=== PATIENT | female | born 1990 | race Asian ===

== ENCOUNTER → 2018-04-11 08:04 | Outpatient (CLI) | payer OTHER, MEDICAID, SELFPAY ==
[2018-04-11 11:49] LABS: Hematocrit 27.1 % (36-46); Hemoglobin 9.1 g/dL (12.0-16.0)
[2018-04-11 12:20] LABS: GTT (PREG) 1 Hour PP 50gm Dose 164 mg/dL (76-139)
== END ==
PROVIDERS: Family Provider Specialist; PCP Specialist; Visit Provider Specialist
DX: Z34.82 Encounter for supervision of other normal pregnancy, second trimester (principal)
CPT/HCPCS: 36415; 82950; 85014; 85018

== ENCOUNTER → 2018-04-18 07:28 | Outpatient (CLI) | payer OTHER, MEDICAID, SELFPAY ==
[2018-04-18 10:56] LABS: Glucose Tol Interp,Gestational INTERPRETATION
[2018-04-18 11:27] LABS: Glucose 2 Hour Gest 135 mg/dL (76-155)
[2018-04-18 11:41] LABS: Glucose Fasting Gestational 81 mg/dL (76-95)
[2018-04-18 11:43] LABS: Glucose 1 Hour Gest 156 mg/dL (76-180)
[2018-04-18 12:55] LABS: Glucose 3 Hour Gest 126 mg/dL (76-140)
== END ==
PROVIDERS: PCP Specialist; Visit Provider Specialist
DX: O99.810 Abnormal glucose complicating pregnancy (principal); Z34.92 Encounter for supervision of normal pregnancy, unspecified, second trimester
CPT/HCPCS: 36415; 82951; 82952

== ENCOUNTER 2018-06-08 16:38 | Outpatient (CLI) | payer OTHER, MEDICAID, SELFPAY ==
--- NOTE | 2018-06-08 17:00 | P.TNLD_ITS ---
Visit Information Visit Information Date of evaluation: 06/08/18 Primary OB Provider: Graciela Turner Reason for Evaluation: Yes non-stress test Comments/Additional reasons for admission: prior demise 3 day old infant in the [facility] Evaluation Evaluation Baseline heart rate: 130 Variability: Moderate (11-25) monitor accelerations: Present monitor decelerations: Absent Cervical effacement (%): 100 station: -1 Diagnosis, Plan/Disposition Final Diagnosis (1) 36 weeks gestation of : Current Visit: Yes Status: Acute (2) Hx of in prior , currently : Current Visit: Yes Status: Acute Plan/Disposition Plan: Reactive NST. Routine precautions. Follow up in 1 week
== END 2018-06-08 17:20 | disposition home or self-care (01) ==
LOC: OB 06-11 14:41
PROVIDERS: Family Provider Specialist; PCP Specialist; Visit Provider Specialist
CPT/HCPCS: 59025; G0378; G0379

== ENCOUNTER → 2018-06-08 16:41 | Outpatient (CLI) | payer OTHER, MEDICAID, SELFPAY ==
[2018-06-09 15:13] LABS: Strep Grp B PCR POS for Grp B Strep
== END ==
PROVIDERS: Family Provider Specialist; PCP Specialist; Visit Provider Specialist
DX: Z34.83 Encounter for supervision of other normal pregnancy, third trimester (principal); Z3A.36 36 weeks gestation of pregnancy
CPT/HCPCS: 59025; 87653

== ENCOUNTER 2018-06-13 09:05 | Outpatient (CLI) | payer OTHER, MEDICAID, SELFPAY ==
--- NOTE | 2018-06-13 09:49 | PM.OBTRLD ---
Visit Information Visit Information Date of evaluation: 06/13/18 Primary OB Provider: Graciela Turner Reason for Evaluation: Yes non-stress test Evaluation Evaluation Baseline heart rate: 135 Variability: Moderate (11-25) monitor accelerations: Present monitor decelerations: Absent Contraction Frequency (minutes): 0 Cervical dilation (cm): 4 Cervical effacement (%): 80 station: -1 Diagnosis, Plan/Disposition Final Diagnosis (1) Hx of in prior , currently : Current Visit: No Status: Acute (2) 37 weeks gestation of : Current Visit: Yes Status: Acute Plan/Disposition Plan: Reactive nonstress test follow-up in 1 week
== END 2018-06-13 10:00 | disposition home or self-care (01) ==
LOC: LABOR 09:36 → OB 14:14
PROVIDERS: Family Provider Specialist; PCP Specialist; Visit Provider Specialist
DX: Z34.03 Encounter for supervision of normal first pregnancy, third trimester (principal); Z3A.37 37 weeks gestation of pregnancy
CPT/HCPCS: 59025; G0378; G0379

== ENCOUNTER 2018-06-20 12:12 | Outpatient (CLI) | payer OTHER, MEDICAID, SELFPAY ==
--- NOTE | 2018-06-20 12:37 | PM.OBTRLD ---
Visit Information Visit Information Date of evaluation: 06/20/18 Reason for Evaluation: Yes non-stress test Comments/Additional reasons for admission: Prior demise of 3-day-old Evaluation Evaluation Baseline heart rate: 140 Variability: Moderate (11-25) monitor accelerations: Present monitor decelerations: Absent Diagnosis, Plan/Disposition Final Diagnosis (1) Hx of in prior , currently : Current Visit: No Status: Acute (2) 38 weeks gestation of : Current Visit: Yes Status: Acute Plan/Disposition Plan: Reactive nonstress test follow-up at routine OB appointment. Routine precautions for movement and labor were discussed.
== END 2018-06-20 12:41 | disposition home or self-care (01) ==
LOC: OB 06-22 16:42
PROVIDERS: PCP Specialist; Visit Provider Specialist
DX: O09.893 Supervision of other high risk pregnancies, third trimester (principal); Z3A.38 38 weeks gestation of pregnancy
CPT/HCPCS: 59025; G0378; G0379

== ENCOUNTER 2018-06-26 16:41 | Inpatient (IN) | payer OTHER, MEDICAID, SELFPAY ==
[2018-06-26] MEDS: LACTATED RINGERS 1,000 ML 100 ML IV (17:10)
[2018-06-26 18:06] LABS: Add Manual Diff / Slide Review NO; Basophils Percent Auto 0.7 % (0-2); Eosinophils Percent Auto 0.9 % (2-4); Hematocrit 36.1 % (36-46); Hemoglobin 11.8 g/dL (12.0-16.0); Mean Corpuscular HGB Conc 32.7 % (30-36); Mean Corpuscular Hemoglobin 28.8 PG (26-34); Mean Corpuscular Volume 87.8 fL (80-100); Monocytes Percent Auto 7.4 % (3-14); Neutrophils Absolute Auto 8200 /uL (3000-5900); Platelet Count 282 X10^3/uL (150-400); Red Blood Cell Count 4.11 X10^6/uL (4.0-5.2); White Blood Cell Count 11.2 X10^3/uL (4.5-11.0)
[2018-06-26] MEDS: PENICILLIN G POTASSIUM 5,000,000 UNIT in DEXTROSE 5% IN WATER 250 ML IV (18:18)
[2018-06-26 19:45] VITALS: BP 113/66
--- NOTE | 2018-06-26 20:14 | P.HPOB_ITS ---
OB HPI Date/Time Date of admission: 06/26/18 Date Patient Seen: 06/26/18 Time Patient Seen: 20:01 History of Present Illness Chief complaint: EVAL OF LABOR : 2 Para: 1 Estimated Date of Delivery: 07/02/18 Estimated Gestational Age (weeks): 39 Narrative: Elena New is a 28 year old female with spontaneous rupture membranes not in active labor. History of Present care: good care Dating criteria: LMP confirmed by 2nd trimester US Ultrasounds: normal mid trimester US Obstetrical complications: none Medical complications: none Preadmission Labs Blood type: O (+) positive -: Antibody screen: negative, GBS status: positive, HBsAG: negative, HIV: negative, HSV 1: positive, HSV 2: negative and RPR/VDLR: negative HCT: 27 HCAB: negative Quad screen: Normal 3 hr GTT: 1 hr (156), 2 hr (135) and 3 hr (126) Prior (ies) History: 05/30/2008 7 months gestation vaginal delivery male infant on day 3 of age Evaluation Evaluation Baseline heart rate: 140 Variability: Moderate (11-25) monitor accelerations: Present monitor decelerations: Absent Contraction Frequency (minutes): 8 Uterine Contraction Intensity: Mild Category of Tracing: I Cervical dilation (cm): 5 Cervical effacement (%): 90 station: -2 Laboratory results: Laboratory Tests 06/26/18 06/26/18 17:05 17:05 WBC 11.2 H RBC 4.11 Hgb 11.8 L Hct 36.1 MCV 87.8 MCH 28.8 MCHC 32.7 RDW 18.0 H Plt Count 282 Neut % (Auto) 73.0 Lymph % (Auto) 18.0 L [place] % (Auto) 7.4 Eos % (Auto) 0.9 L Baso % (Auto) 0.7 Neut # (Auto) 8200 H Blood Type O Positive Antibody Screen Negative [facility] Medical History History of anemia (Acute) History of depression (Acute) History of migraine (Acute) History of treatment for tuberculosis (Inactive) Surgical History History of appendectomy (Acute) Social History Smoking Status: Former smoker Meds Home Medications Medication Instructions Recorded Confirmed Type 1 tab PO DAILY 06/26/18 06/26/18 History Allergies Allergy/AdvReac Type Severity Reaction Status Date / Time No Known Drug Allergies Allergy Verified 06/26/18 19:45 Review of Systems Review of Systems Patient with a headache yesterday but none today baby has been moving well. Spontaneous rupture of membranes but not in active labor. All systems reviewed & are unremarkable except as noted in HPI and below Exam Vital Signs (past 8 hours): - Blood pressure 113/66, pulse of 80, temperature 97.5? 06/26/18 19:45 Blood Pressure 113/66 Narrative Exam Narrative: HEENT exam within normal limits. Lungs are clear to auscultation percussion. Heart is regular rate and rhythm no S3-S4 or murmurs. Abdomen is soft, nontender. Infant is vertex. Estimated weight 7 lb. Objective Labs Result Diagrams: 06/26/18 17:05 Labs: Laboratory Results - last 24 hr 06/26/18 06/26/18 17:05 17:05 WBC 11.2 H RBC 4.11 Hgb 11.8 L Hct 36.1 MCV 87.8 MCH 28.8 MCHC 32.7 RDW 18.0 H Plt Count 282 Neut % (Auto) 73.0 Lymph % (Auto) 18.0 L [place] % (Auto) 7.4 Eos % (Auto) 0.9 L Baso % (Auto) 0.7 Neut # (Auto) 8200 H Blood Type O Positive Antibody Screen Negative Assessment and Plan (1) 39 weeks gestation of : Current visit: Yes Status: Acute (2) Hx of in prior , currently : Current visit: No Status: Acute Plan: Plan: If patient does not progress into active labor will begin Pitocin augmentation of labor. Patient with positive group B strep culture so we will start penicillin.
[2018-06-26] MEDS: OXYTOCIN PREMIX 30 UNIT/500 ML PLAST..BAG IV (20:50)
[2018-06-26] MEDS: PENICILLIN G POTASSIUM 3,000,000 UNIT/50 ML FROZ.PIGGY 100 UNIT IV (22:05)
[2018-06-27] MEDS: PENICILLIN G POTASSIUM 3,000,000 UNIT/50 ML FROZ.PIGGY 100 UNIT IV (02:30)
--- NOTE | 2018-06-27 04:22 | PM.OBPRVD ---
Events: Labor Augmentation Delivery date: 06/27/18 Delivery augmentation: pitocin Delivery monitor: external FHT and external uterine Route of delivery: Laceration description: Perineal - 1st Degree Delivery repair: chromic Estimated blood loss (mL): 200 Anesthesia type: Local Narrative: Patient arrived on Labor and delivery with spontaneous rupture of membranes but no contractions. She was started on Pitocin to augment labor. She received 3 doses of IV penicillin. heart tones remained reassuring throughout labor. Patient delivered spontaneously over an intact perineum. The viable male infant was placed on the maternal abdomen and after the cord stopped pulsating the cord was clamped, cut, and cord bloods obtained. The placenta delivered spontaneously, intact, with 3 vessels. There was a midline posterior perineal tear that was repaired with 3 0 chromic suture. There was a left labial tear from the clitoris that was repaired with 4 0 chromic suture. Estimated blood loss 200 cc. Both and mother doing well. Weight 7 lb 3.4 oz, 3272 g [place] Baby 1: Infant gender: Male Presentation: vertex Placenta delivery description: Spontaneous cord vessel description: 3 Vessels score (1 min): 9 score (5 min): 9 Plan for aftercare: Routine post vaginal delivery care.
[2018-06-27] MEDS: IBUPROFEN 600 MG TABLET PO ×2 (06:15→16:39)
[2018-06-27] MEDS: DERMOPLAST SPRAY 20% 60 ML 1 SPRAY TOP (06:45)
[2018-06-27] MEDS: DOCUSATE 250 MG CAPSULE PO (09:37)
[2018-06-27] MEDS: PRENATAL VIT,CALC/IRON/FOLIC 1 TABLET 1 TAB PO (09:37)
[2018-06-27] MEDS: ACETAMINOPHEN 325 MG TABLET 650 MG PO (21:11)
[2018-06-28] MEDS: IBUPROFEN 600 MG TABLET PO ×2 (03:23→08:55)
[2018-06-28 05:48] LABS: Hematocrit 31.6 % (36-46); Hemoglobin 10.2 g/dL (12.0-16.0)
--- NOTE | 2018-06-28 08:20 | PM.OBDS.1 ---
Discharge Providers Date of admission: 06/26/18 16:41 Primary care physician: Graciela Turner MD Consults: 06/27/18 05:46 Consult to Receptionist Telephone Operator Routine Comment: Discharge provider: Graciela Turner MD Discharge Date: 06/28/18 Summary Date Patient Seen: 06/28/18 Time Patient Seen: 08:00 Peripartum Data Infant Delivery Method: Natural Vaginal Laceration description: Perineal - 1st Degree Procedures: Spontaneous vaginal delivery, repair of first-degree vaginal and left labia minora tear, IV antibiotics for positive group B strep culture complications: none Discharge Diagnosis (1) 39 weeks gestation of : Status: Acute (2) Hx of in prior , currently : Status: Acute (3) Vaginal delivery: Status: Acute Status at Discharge Functional status at discharge: independent ambulation Overall status at discharge: patient is progressing back to baseline Time Spent with Patient Total time spent providing and/or coordinating discharge services: Less than 30 minutes Objective Labs Result Diagrams: 06/28/18 05:25 Labs: Laboratory Results - last 24 hr 06/28/18 05:25 Hgb 10.2 L Hct 31.6 L Discharge Plan Discharge Plan Patient Disposition: Home, Self-Care Discharge Med Rec/Prescriptions Prescriptions: New ibuprofen 600 mg Tablet 600 mg PO Q6HR PRN (Reason: Pain, Mild (1-3)) Qty: 30 RF: 0 Continue 1 tab PO DAILY RF: 0 No Action hydrocodone-acetaminophen [[place]] 5-325 mg tablet 1 tab PO Q6H PRN (Reason: pain) Qty: 20 RF: 0 Follow up/Referrals: Graciela Turner MD [Primary Care Provider] - 1 Month (,July at 11:30 with ) Provider Discharge Instructions Diet: Regular Activity: Nothing in vagina for 4 weeks Skin/Wound/Dressing Care Report to your healthcare provider any signs of infection, such as:: chills, fever, increased pain and unusual drainage Visit Report/Discharge Packet Instructions: DI for Labor and Delivery, Vaginal Visit Report Forms: Stroke Signs & Symptoms Discharge Data Primary Care Provider: Graciela Turner Attending Provider: Isela Hodges Admit Date/Time: 06/26/18 16:41 Discharges patient from system. Discharge Date/Time: 06/28/18 11:15
[2018-06-28] MEDS: DOCUSATE 250 MG CAPSULE PO (08:54)
[2018-06-28 09:43] VITALS: BP 93/54; PULSE 70; RESP 16; TEMP 36.8
[2018-06-28 11:21] VITALS: BP 93/54; PULSE 70; RESP 16; TEMP 36.8
== END 2018-06-28 11:15 | disposition home or self-care (01) | DRG 560 ==
PROVIDERS: Admitting Provider Obstetrics & Gynecology; Family Provider Specialist; PCP Specialist; Visit Provider Obstetrics & Gynecology
DX: O42.02 Full-term premature rupture of membranes, onset of labor within 24 hours of rupture (principal); Z3A.39 39 weeks gestation of pregnancy; Z37.0 Single live birth; O70.0 First degree perineal laceration during delivery; O99.824 Streptococcus B carrier state complicating childbirth
CPT/HCPCS: 36415; 59050; 59409; 84112; 85014; 85018; 85025; 86850; 86900; 86901; G0379; J2540; J2590

== ENCOUNTER → 2021-09-30 11:53 | Outpatient (CLI) | payer OTHER, MEDICAID, SELFPAY | PROVIDERS: Family Provider Specialist; PCP Specialist; Referring Provider Student in an Organized Health Care Education/Training Program; Visit Provider Student in an Organized Health Care Education/Training Program | DX: R22.2 Localized swelling, mass and lump, trunk (principal); Z53.8 Procedure and treatment not carried out for other reasons ==

== ENCOUNTER → 2021-10-21 13:52 | Outpatient (CLI) | payer OTHER, MEDICAID, SELFPAY ==
--- NOTE | 2021-10-21 13:53 | DI.US.S_ITS ---
PROCEDURE: US ABDOMEN LIMITED INDICATIONS: SOFT TISSUE CHEST WALL TECHNIQUE: Real-time focused scanning was performed of the abdomen, with image documentation. COMPARISON: None. FINDINGS: At the patient's epigastric area of palpable concern there is a tiny 3 x 5 x 5 millimeter hypoechoic well-circumscribed mass with no associated Doppler flow. This is likely a epidermal inclusion cyst. IMPRESSION: Tiny nonvascular abnormality at the area of palpable concern, which according to the patient has been present and unchanged for 4-5 years. This most likely represents a tiny epidermal inclusion cyst Dictated by: Darrian Davis M.D. on 10/21/2021 at 14:05 Approved by: Darrian Davis M.D. on 10/21/2021 at 14:07
== END ==
PROVIDERS: Family Provider Specialist; PCP Specialist; Referring Provider Student in an Organized Health Care Education/Training Program; Visit Provider Student in an Organized Health Care Education/Training Program
DX: R22.2 Localized swelling, mass and lump, trunk (principal)
CPT/HCPCS: 76705

== ENCOUNTER → 2023-05-02 09:01 | Outpatient (CLI) | payer OTHER, MEDICAID, SELFPAY ==
--- NOTE | 2023-05-02 09:03 | DI.US.S_ITS ---
PROCEDURE: US OB <= 14 WEEKS FETUS INDICATIONS: DATING AND VIABILITY OUTSIDE/PRIOR DATING DATA: Last menstrual period (LMP): Unknown LMP-based estimated date of delivery (JOSE): Unknown First dating scan (date and location): 05/02/2023 Estimated date of delivery (JOSE) from first dating scan: 11/22/2023 The calculations are made using the study generated JOSE of 11/22/2023 TECHNIQUE: Real-time scanning was performed of the fetus and maternal pelvic organs, with image documentation. Endovaginal scanning was also performed to better visualize the fetus and maternal ovaries. COMPARISON: None. FINDINGS: Embryo: Single intrauterine gestation is seen with fetus and yolk sac noted. [place]-rump length measures 4.0 cm. Estimated gestational age is 10 weeks, 6 days. Heart rate: 173 beats per minute. Maternal organs: Right ovary is not well seen. No adnexal mass is seen. Possible small corpus luteum is noted in left ovary. IMPRESSION: 1. Single live intrauterine gestation with fetus and yolk sac seen. Estimated gestational age is 10 weeks, 6 days. heart rate is 173 beats per minute. We strive to produce accurate, complete, and clear reports of imaging services. To assist us in improving patient care, this report was composed using standard report templates and voice recognition software. Therefore, it may contain abnormal punctuation, insertions and/or omissions. Occasional wrong-word or sound-alike substitutions may occur. Though we review the report and make efforts to correct it, we do recommend that the report be read carefully in proper context to recognize any text inaccuracies. Dictated by: Glenn Spring M.D. on 05/02/2023 at 11:01 Approved by: Glenn Spring M.D. on 05/02/2023 at 11:02
== END ==
PROVIDERS: Referring Provider Internal Medicine; Visit Provider Internal Medicine
DX: Z36.87 Encounter for antenatal screening for uncertain dates (principal); Z3A.10 10 weeks gestation of pregnancy
CPT/HCPCS: 76801; 76817

== ENCOUNTER → 2023-07-14 10:29 | Outpatient (CLI) | payer OTHER, MEDICAID, SELFPAY ==
[2023-07-14 12:02] LABS: Add Manual Diff / Slide Review NO; Basophils Absolute Auto 100 /uL (0-100); Basophils Percent Auto 0.9 % (0-2); Eosinophils Absolute Auto 200 /uL (0-450); Eosinophils Percent Auto 1.8 % (2-4); Hematocrit 29.6 % (36-46); Lymphocytes Absolute Auto 2700 /uL (1100-4500); Lymphocytes Percent Auto 20.2 % (25-40); Mean Corpuscular HGB Conc 33.7 % (30-36); Mean Corpuscular Hemoglobin 30.8 PG (26-34); Mean Corpuscular Volume 91.4 fL (80-100); Monocytes Absolute Auto 800 /uL (0-900); Monocytes Percent Auto 6.2 % (3-14); Neutrophils Absolute Auto 9500 /uL (1500-7000); Neutrophils Percent Auto 70.9 % (50-75); Platelet Count 258 X10^3/uL (150-400); Red Blood Cell Count 3.24 X10^6/uL (4.0-5.2); Red Cell Distribution Width 14.1 % (11.6-14.8); White Blood Cell Count 13.4 X10^3/uL (4.5-11.0)
[2023-07-14 13:08] LABS: HIV 1 & 2 Ab/Ag 4th Gen Combo NEGATIVE (NEGATIVE); Hep C Virus Ab w/Reflex Quant NEGATIVE s/c (NEGATIVE); Hepatitis B Surface Antigen NEGATIVE s/c (NEGATIVE)
[2023-07-15 08:21] LABS: RPR Screen Non Reactive (Non Reactive)
[2023-07-15 09:17] LABS: Varicella IgG Antibody <135 index (Immune >165)
[2023-07-17 15:39] LABS: AFP, Serum 93.4 ng/mL (.); Estriol, Free 3.45 ng/mL (.); Inhibin A, Dimeric 244.61 pg/mL (.); Inhibin A, MoM 0.81 (.); Maternal Ethnicity Other (.); Maternal Weight 97 lbs (.); Number of Fetuses No (.); OSBR Risk 1 IN 10000 (.); Results Report (.); Test Results *Screen Negative* (.); hCG, MoM 0.54 (.); hCG, Serum 17965 mIU/mL (.)
== END ==
PROVIDERS: Referring Provider Obstetrics & Gynecology; Visit Provider Obstetrics & Gynecology
DX: Z34.82 Encounter for supervision of other normal pregnancy, second trimester (principal); Z3A.15 15 weeks gestation of pregnancy
CPT/HCPCS: 36415; 80055; 82105; 82677; 84702; 86336; 86787; 86803; 86850; 86900; 86901; 87086; 87389

== ENCOUNTER → 2023-07-18 09:05 | Outpatient (CLI) | payer OTHER, MEDICAID, SELFPAY ==
--- NOTE | 2023-07-18 09:07 | DI.US.S_ITS ---
PROCEDURE: US OB >= 14 WEEKS FETUS INDICATIONS: 20 WEEK ANATOMY OUTSIDE/PRIOR DATING DATA: Last menstrual period (LMP): Unknown. LMP-based estimated date of delivery (JOSE): Unknown. First dating scan (date and location): 05/02/2023. Estimated date of delivery (JOSE) from first dating scan: 11/22/2023. The calculations are made using the ultrasound JOSE of 11/22/2023. TECHNIQUE: Real-time scanning was performed of the fetus, with image documentation and biometric measurements. Endovaginal scanning: Not performed COMPARISON: [facility], , OB >= 14 WEEKS FETUS, 06/13/2018, 8:58. FINDINGS: General: A single living intrauterine gestation is present. Presentation: Vertex. Placenta: Placental position is posterior , without previa. Amniotic fluid index: 8.9 cm, normal range is 5-24 cm. Single deepest vertical pocket is 3.6 cm. heart rate: 150 beats per minute. Maternal cervical canal: 3.9 cm long. Normal lower limit is 2.5 cm. biometrics: Biparietal diameter: 4.8 cm, 20 weeks 3 days Head circumference: 19.3 cm, 21 weeks 4 days Abdominal circumference: 15.6 cm, 20 weeks 5 days Femur length: 3.5 cm, 21 weeks 0 days Clinically estimated gestational age: 21 weeks 6 days Composite gestational age from present scan: 21 weeks 0 days Estimated weight and percentile: 384 g, 8 percentile Anatomic survey: Neuro: Ventricles are non-dilated at less than 10 mm. Cisterna magna is normal at 3-11 mm. Cerebellum is normal in size and morphology. Nuchal skin fold: Normal at less than 6 mm between 14-21 weeks gestational age. Face: Nose and lips, facial profile are normal. Spine: No evidence for spina bifida. Heart: 4-chambered heart is present, with normal ventricular outflow tracts. Diaphragm: Diaphragm is intact. Stomach: Left-sided stomach is present. Kidneys: No hydronephrosis. Normal is less than 5 mm in 2nd trimester, less than 7 mm in 3rd trimester. Cord: 3-vessel cord has orthotopic insertion. Bladder: Normal in size. Extremities: All 4 extremities identified. IMPRESSION: 1. Living check and trimester intrauterine with no sonographic evidence of complications. 2. Normal 2nd trimester anatomy study. 3. Current ultrasound age is 6 days less than clinical age, placing the EFW at 8%. We strive to produce accurate, complete, and clear reports of imaging services. To assist us in improving patient care, this report was composed using standard report templates and voice recognition software. Therefore, it may contain abnormal punctuation, insertions and/or omissions. Occasional wrong-word or sound-alike substitutions may occur. Though we review the report and make efforts to correct it, we do recommend that the report be read carefully in proper context to recognize any text inaccuracies. Dictated by: Ariel Garcia M.D. on 07/18/2023 at 12:14 Approved by: Ariel Garcia M.D. on 07/18/2023 at 12:19
== END ==
PROVIDERS: Referring Provider Obstetrics & Gynecology; Visit Provider Obstetrics & Gynecology
DX: Z34.82 Encounter for supervision of other normal pregnancy, second trimester (principal); Z3A.21 21 weeks gestation of pregnancy
CPT/HCPCS: 76811

== ENCOUNTER → 2023-08-11 09:30 | Outpatient (CLI) | payer OTHER, MEDICAID, SELFPAY ==
[2023-08-11 11:31] LABS: Hematocrit 30.7 % (36-46); Hemoglobin 10.2 g/dL (12.0-16.0)
[2023-08-11 11:55] LABS: GTT (PREG) 1 Hour PP 50gm Dose 149 mg/dL (76-139)
== END ==
PROVIDERS: Referring Provider Obstetrics & Gynecology; Visit Provider Obstetrics & Gynecology
DX: Z34.82 Encounter for supervision of other normal pregnancy, second trimester (principal)
CPT/HCPCS: 36415; 82950; 85014; 85018

== ENCOUNTER → 2023-08-17 07:46 | Outpatient (CLI) | payer OTHER, MEDICAID, SELFPAY ==
[2023-08-17 09:41] LABS: Glucose Fasting Gestational 84 mg/dL (76-95)
[2023-08-17 10:34] LABS: Glucose 1 Hour Gest 177 mg/dL (76-180)
[2023-08-17 11:25] LABS: Glucose 2 Hour Gest 126 mg/dL (76-155)
[2023-08-17 11:33] LABS: Glucose Tol Interp,Gestational INTERPRETATION
[2023-08-17 13:53] LABS: Glucose 3 Hour Gest 116 mg/dL (76-140)
== END ==
PROVIDERS: Referring Provider Obstetrics & Gynecology; Visit Provider Obstetrics & Gynecology
DX: O99.810 Abnormal glucose complicating pregnancy (principal)
CPT/HCPCS: 36415; 82951; 82952

== ENCOUNTER → 2023-09-29 17:10 | Outpatient (CLI) | payer OTHER, MEDICAID, SELFPAY | PROVIDERS: Visit Provider Obstetrics & Gynecology | DX: R82.998 Other abnormal findings in urine (principal) | CPT/HCPCS: 87086 ==

== ENCOUNTER → 2023-10-05 11:59 | Outpatient (CLI) | payer OTHER, MEDICAID, SELFPAY ==
[2023-10-05 13:03] LABS: Alanine Aminotransferase 11 IU/L (<35); Albumin 3.6 g/dL (3.5-5.0); Albumin Globulin Ratio 1.1 (1.0-2.8); Alkaline Phosphatase 85 U/L (38-126); Aspartate Aminotransferase 21 IU/L (14-36); Bilirubin Total 0.3 mg/dL (0.2-1.3); Bilirubin Unconjugated 0.1 mg/dL (0.0-1.1); Globulin 3.3 g/dL (1.7-4.1); HEMOLYSIS < 15 (0-50); Total Protein 6.9 g/dL (6.3-8.2)
[2023-10-06 21:44] LABS: Bile Acids 4.6 umol/L (0.0-10.0)
== END ==
PROVIDERS: Referring Provider Physician Assistant Medical; Visit Provider Physician Assistant Medical
DX: O99.719 Diseases of the skin and subcutaneous tissue complicating pregnancy, unspecified trimester (principal); L29.9 Pruritus, unspecified
CPT/HCPCS: 36415; 80076; 82239

== ENCOUNTER 2023-10-05 12:01 | Outpatient (CLI) | payer OTHER, MEDICAID, SELFPAY | END 2023-10-05 13:05 | disposition home or self-care (01) | LOC: OB 10-06 13:50 | PROVIDERS: Referring Provider Obstetrics & Gynecology; Visit Provider Obstetrics & Gynecology | DX: O36.5930 Maternal care for other known or suspected poor fetal growth, third trimester, not applicable or unspecified (principal); L29.9 Pruritus, unspecified; O26.893 Other specified pregnancy related conditions, third trimester; Z3A.33 33 weeks gestation of pregnancy; O99.719 Diseases of the skin and subcutaneous tissue complicating pregnancy, unspecified trimester | CPT/HCPCS: 36415; 59025; 80076; 82239; G0378; G0379 ==

== ENCOUNTER 2023-10-16 09:45 | Outpatient (CLI) | payer OTHER, MEDICAID, SELFPAY ==
--- NOTE | 2023-10-16 10:55 | P.TNLD_ITS ---
Visit Information Visit Information Date of evaluation: 10/16/23 Primary OB Provider: Isela Hodges On-call OB Provider: Kristen Munroe Reason for Evaluation: Yes non-stress test Comments/Additional reasons for admission: 33yo at 34.5w presents for scheduled NST for IUGR. Reports noticing contractions this morning every few minutes, 8/10. Denies leaking fluid, bleeding. Good movement. Vital Signs Vital Signs: BP107/59 HR98 [facility] Medical History Fibroids Positive PPD (~2013) Vaginal delivery History of migraine History of depression History of anemia Surgical History Anesthesia History of appendectomy (~2016) Family History Mother Diabetes mellitus Hypertension Stroke Father Hypertension Grandmother Heart disease Grandfather Heart disease Diabetes mellitus Grandmother Heart disease Social History marital status: unmarried,living together number of children: 1 (One as a baby) household members: significant other and children lives independently: Yes caregiver/support person: Yes housing: house pets and animals: No education level: college (bachelor's degree) 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 current occupational exposures/hazards: Yes special pedro needs: No travel history: recent (domestic only) seatbelt use: always helmet use: No water heater temp set < 120 deg: Yes working smoke detector in home: Yes fire extinguisher in home: Yes carbon monox detector in home: Yes firearms in home: No do you feel safe at home: Yes Smoking Status: Former smoker (quit ~2015) Tobacco: How many years used: 3 second hand exposure: Yes (s/o vapes) alcohol intake: former (occasionally when not ) substance use type: does not use during the past year weight has: remained stable well-balanced diet: rarely or never daily servings fruits/ve-1 caffeine: Yes (AM cup coffee) Type(s) of exercise: none Review of Systems Review of Systems ROS: Yes All systems reviewed with the patient and are negative except as otherwise documented Exam Const General: cooperative, healthy appearing and comfortable Orientation: oriented x3 Eyes General: appearance normal, both eyes and all related structures Resp Effort & Inspection: normal respiratory effort Cardio Rate: regular rate Skin General: no rashes or lesions noted Neuro General: patient oriented x3 Extrem General: normal to inspection Psych Appearance: grossly normal Evaluation Evaluation Variability: Moderate (11-25) monitor accelerations: Present Monitor Decelerations: Absent Contraction Frequency (minutes): 4 Uterine Contraction Intensity: Mild Category of Tracing: Reactive Status: Category l Cervical dilation (cm): 0 Cervical effacement (%): 50 station: -3 Diagnosis, Plan/Disposition Plan/Disposition Plan: 33yo at 34.5w with IUGR, presented for scheduled NST. Noted to have contractions and evaluation for labor completed- false labor. - NST reactive - SVE closed - Discharge to home, follow up this week as scheduled. - Labor precautions given OB Disposition: home
== END 2023-10-16 10:50 | disposition home or self-care (01) ==
LOC: LABOR 11:03 → OB 10-19 15:58
PROVIDERS: Referring Provider Obstetrics & Gynecology; Visit Provider Obstetrics & Gynecology
DX: O36.5930 Maternal care for other known or suspected poor fetal growth, third trimester, not applicable or unspecified (principal); O47.03 False labor before 37 completed weeks of gestation, third trimester; Z3A.34 34 weeks gestation of pregnancy
CPT/HCPCS: 59025; G0378; G0379

== ENCOUNTER → 2023-10-27 09:09 | Outpatient (CLI) | payer OTHER, MEDICAID, SELFPAY | PROVIDERS: Referring Provider Obstetrics & Gynecology; Visit Provider Obstetrics & Gynecology | DX: O36.5930 Maternal care for other known or suspected poor fetal growth, third trimester, not applicable or unspecified (principal); Z3A.36 36 weeks gestation of pregnancy ==

== ENCOUNTER 2023-10-27 09:13 | Outpatient (CLI) | payer OTHER, MEDICAID, SELFPAY | END 2023-10-27 09:46 | disposition home or self-care (01) | LOC: LABOR 09:45 → OB 10-30 12:01 | PROVIDERS: Referring Provider Obstetrics & Gynecology; Visit Provider Obstetrics & Gynecology | DX: O36.5930 Maternal care for other known or suspected poor fetal growth, third trimester, not applicable or unspecified (principal); O47.03 False labor before 37 completed weeks of gestation, third trimester; Z3A.36 36 weeks gestation of pregnancy | CPT/HCPCS: 59025; 87653; G0378; G0379 ==

== ENCOUNTER → 2023-10-27 16:21 | Outpatient (CLI) | payer OTHER, MEDICAID, SELFPAY ==
[2023-10-28 14:01] LABS: Strep Grp B PCR NEG for Grp B Strep
== END ==
PROVIDERS: Visit Provider Obstetrics & Gynecology
DX: Z34.83 Encounter for supervision of other normal pregnancy, third trimester (principal); Z3A.36 36 weeks gestation of pregnancy
CPT/HCPCS: 87653

== ENCOUNTER 2023-11-03 09:09 | Outpatient (CLI) | payer OTHER, MEDICAID, SELFPAY ==
--- NOTE | 2023-11-05 21:11 | P.TNLD_ITS ---
Visit Information Visit Information Date of evaluation: 11/03/23 Primary OB Provider: Isela Hodges On-call OB Provider: Isela Hodges Reason for Evaluation: Yes non-stress test non-stress test reason: other (FGR earlier in , h/o 28 wk loss) [facility] Medical History Fibroids Positive PPD (~2013) Vaginal delivery History of migraine History of depression History of anemia Surgical History Anesthesia History of appendectomy (~2016) Family History Mother Diabetes mellitus Hypertension Stroke Father Hypertension Grandmother Heart disease Grandfather Heart disease Diabetes mellitus Grandmother Heart disease Social History marital status: unmarried,living together number of children: 1 (One as a baby) household members: significant other and children lives independently: Yes caregiver/support person: Yes housing: house pets and animals: No education level: college (bachelor's degree) 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 current occupational exposures/hazards: Yes special pedro needs: No travel history: recent (domestic only) seatbelt use: always helmet use: No water heater temp set < 120 deg: Yes working smoke detector in home: Yes fire extinguisher in home: Yes carbon monox detector in home: Yes firearms in home: No do you feel safe at home: Yes Smoking Status: Former smoker (quit ~2015) Tobacco: How many years used: 3 second hand exposure: Yes (s/o vapes) alcohol intake: former (occasionally when not ) substance use type: does not use during the past year weight has: remained stable well-balanced diet: rarely or never daily servings fruits/ve-1 caffeine: Yes (AM cup coffee) Type(s) of exercise: none Evaluation Evaluation Baseline heart rate: 138 Variability: Moderate (11-25) monitor accelerations: Present Monitor Decelerations: Absent Status: Category l Diagnosis, Plan/Disposition Plan/Disposition Plan: Assessment: 37+2 wks gestation H/O 28 wk loss FGR earlier in the pregnany Plan: F/U 1 wk. Warning signs reviewed.
== END 2023-11-03 09:45 | disposition home or self-care (01) ==
LOC: OB 11-06 11:55
PROVIDERS: Referring Provider Obstetrics & Gynecology; Visit Provider Obstetrics & Gynecology
DX: Z36.9 Encounter for antenatal screening, unspecified (principal)
CPT/HCPCS: 59025; G0378; G0379

== ENCOUNTER 2023-11-10 07:52 | Inpatient (IN) | payer OTHER, MEDICAID, SELFPAY ==
[2023-11-10 08:31] LABS: Add Manual Diff / Slide Review NO; Basophils Absolute Auto 100 /uL (0-100); Basophils Percent Auto 0.4 % (0-2); Eosinophils Absolute Auto 200 /uL (0-450); Eosinophils Percent Auto 1.2 % (2-4); Hemoglobin 12.2 g/dL (12.0-16.0); Lymphocytes Absolute Auto 2900 /uL (1100-4500); Lymphocytes Percent Auto 17.2 % (25-40); Mean Corpuscular Hemoglobin 31.2 PG (26-34); Mean Corpuscular Volume 91.9 fL (80-100); Monocytes Absolute Auto 900 /uL (0-900); Monocytes Percent Auto 5.6 % (3-14); Neutrophils Absolute Auto 12800 /uL (1500-7000); Neutrophils Percent Auto 75.6 % (50-75); Platelet Count 281 X10^3/uL (150-400); Red Blood Cell Count 3.92 X10^6/uL (4.0-5.2); Red Cell Distribution Width 13.9 % (11.6-14.8); White Blood Cell Count 16.9 X10^3/uL (4.5-11.0)
[2023-11-10 08:45] VITALS: BP 114/53
[2023-11-10] MEDS: LACTATED RINGERS 1,000 ML 100 ML IV (08:52)
[2023-11-10] MEDS: OXYTOCIN PREMIX 30 UNIT/500 ML PLAST..BAG 200 UNIT IV (09:50)
[2023-11-10] MEDS: IBUPROFEN 600 MG TABLET PO ×3 (10:40→22:12)
[2023-11-10] MEDS: DERMOPLAST SPRAY 20% 60 ML 1 SPRAY TOP (10:40)
[2023-11-10] MEDS: ACETAMINOPHEN 325 MG TABLET 650 MG PO ×2 (12:16→18:35)
[2023-11-10] MEDS: LANOLIN OINT 7 GM 1 APPLIC TOP (22:13)
[2023-11-11] MEDS: ACETAMINOPHEN 325 MG TABLET 650 MG PO ×2 (00:35→06:18)
[2023-11-11] MEDS: IBUPROFEN 600 MG TABLET PO ×2 (03:47→09:30)
[2023-11-11 06:47] LABS: Hematocrit 29.5 % (36-46); Hemoglobin 9.8 g/dL (12.0-16.0)
[2023-11-11 07:36] VITALS: BP 134/78; PULSE 79; RESP 18; TEMP 36.3; O2SAT 98
--- NOTE | 2023-11-11 07:39 | PC.NURSE ---
0730 Patient awake and oriented, denies any pain or discomfort; no N/V,no headache or SOB.Dtrs +2,no clonus,2+ pitting edema,Both IV patient one in L.arm with S.L. Right arm with Magnesium Sulfate infusing,both sites without infilation.Up to commode with SOB.Vital signs stable.Magnesum Sulfate infusing at 2gm/hour.Report from lab, magnesium sulfate level 5.1
--- NOTE | 2023-11-11 08:35 | P.DS_ITS ---
History of Present Illness History of Present Illness Chief complaint: possible labor Discharge Providers Provider Date of admission: 11/10/23 07:52 Discharge Date: 11/11/23 Primary care physician: Doctor Yamila MD Consults: 11/10/23 08:13 Consult to Anesthesiology Urgent Comment: Consulting Provider: Isela Hodges Reason for consultation: Epidural 11/11/23 10:13 Consult to Tongue Carrier Routine Comment: Discharge provider: Darrian Huffman MD Summary Hospital Course Discharge Diagnosis: female Hospital Course: Baby born vaginally. After baby did well. Mom was breast-feeding. She was worried about tongue-tie. There was no tongue-tie appreciated. During hospital stay baby had good bowel movement and urination. Discharge weight was 3292. screening was pending at the time of this dictation. Reviewed screening. Discussed follow-up care concerns. Work on Q 2-3 hours. Monitor bowel movements and urination. Discussed about jaundice in the importance of regular breast-feeding. Scheduled follow-up appointment on Monday. Exam - Pediatric Vital Signs Vital Signs: Vital Signs BP 114/53 L 11/10/23 08:45 Gen.: Alert and vigorous active and moving all extremities. HEENT: NCAT a positive red reflex. Tympanic canals are patent nares are patent. Oral mucosa is moist soft palate and lip are intact. Neck is supple without lymphadenopathy. No thyroid masses or cysts. Cardio: S1 and S2 regular rate and rhythm no appreciable murmurs. Respiratory: Lungs are clear to auscultation no wheezes or crackles. Normal respiratory effort. Abdomen: Soft no liver spleen enlargement no obvious hernia. Extremities:Full range of motion no hip clicks or pops. Normal femoral pulses. : Normal external genitalia. Anus is patent. Neurologic: Positive [place] and suck reflex. Objective Labs 11/11/23 06:30 Labs: Laboratory Results - last 24 hr 11/10/23 11/11/23 08:18 06:30 WBC 16.9 H RBC 3.92 L Hgb 12.2 9.8 L Hct 36.0 29.5 L MCV 91.9 MCH 31.2 MCHC 34.0 RDW 13.9 Plt Count 281 Neut % (Auto) 75.6 H Lymph % (Auto) 17.2 L [place] % (Auto) 5.6 Eos % (Auto) 1.2 L Baso % (Auto) 0.4 Neut # (Auto) 07138 H Lymph # (Auto) 2900 [place] # (Auto) 900 Eos # (Auto) 200 Baso # (Auto) 100 Blood Type O Positive Antibody Screen Negative Discharge Plan Discharge Plan Patient Disposition: Home Discharge orders & Medications Prescriptions: No Action prenat.vits,jason,fat-blja-brjhw Tablet 1 tab PO DAILY Qty: 90 3RF Rx Instructions: Please fill whichever brand is covered by pt's insurance. Follow up/Referrals: Isela Hodges MD [Physician] - Visit Report/Discharge Packet Stand Alone Forms: Discharge: Care, Patient Portal/API, Stroke Signs & Symptoms Discharge Data Primary Care Provider: Miscellaneous,Doctor
[2023-11-11 09:00] VITALS: BP 92/60; PULSE 76; RESP 16; TEMP 37
[2023-11-11] MEDS: PRENATAL VIT,CALC/IRON/FOLIC 1 TABLET 1 TAB PO (09:30)
[2023-11-11] MEDS: DOCUSATE 100 MG CAPSULE PO (09:30)
--- NOTE | 2023-11-11 09:40 | P.HPOB_ITS ---
OB HPI Date/Time Date of admission: 11/10/23 Date Patient Seen: 11/10/23 Time Patient Seen: 08:00 History of Present Condition Chief complaint: possible labor JOSE Calculator 2 Estimated Delivery Date Method Current WG Current Estimate 11/22/23 Ultrasound #1 38w 3d Estimated Gestational Age (weeks): 38+2 : 3 Para: 1 care: good care, initiated at week # (14), number of visits (9) and pounds weight gain (34) Dating criteria OB: LMP confirmed by 1st trimester US Ultrasounds: normal 1st trimester US and normal mid trimester US Obstetrical complications: none Medical complications OB: none Preadmission Labs Last OB Lab Results: 2 Blood Type O Positive 11/10/23 08:18 Antibody Screen Negative 11/10/23 08:18 Hematocrit 29.5 % (36-46) L 11/11/23 06:30 Hemoglobin 9.8 g/dL (12.0-16.0) L 11/11/23 06:30 Hepatitis B Surface Antigen Negative s/c (NEGATIVE) 07/14/23 10 :36 Hepatitis C Antibody Negative s/c (NEGATIVE) 07/14/23 10:36 Rubella Antibody 184.0 IU/mL (>15) 07/14/23 10:36 Varicella-Zoster IgG Antibody <135 index (Immune >165) L 10:36 Glucose 1 Hour 149 mg/dL (76-139) H 08/11/23 11:00 Group B Streptococcus (PCR) Neg for grp b strep 10/27/23 16:21 -: Chlamydia screen: negative, Gonorrhea screen: negative and Urine: negative -: PAP smear: Normal Genetic Screens: Cell-free DNA: Normal and Alpha-fetoprotein: Normal External Labs -: Urine: negative Prior (ies) Past Pregnancies Del. Date GA/Weeks Labor Lgth Wt Sex Route Outcome Anesthesia Place Delv Breastfeed Preg Comp Name 05/20/11 ~28 Male vaginal live - Meet brandon 06/27/18 39? 12 7 lb 3 oz Male vaginal live - none IH ~30 months none Perfecto Jesus Delivery Date: 05/20/11 Last Updated by: Rand Henderson, CYNTHIA after ~2 days Evaluation Evaluation Baseline heart rate: 135 Variability: Moderate (11-25) monitor accelerations: Present Monitor Decelerations: Absent Contraction Frequency (minutes): 3 Uterine Contraction Intensity: Strong/Firm Status: Category l Dilation (cm): 6 Effacement (%): 100 station: 0 Position of cervix: anterior [facility] Medical History Fibroids Positive PPD (~2013) Vaginal delivery History of migraine History of depression History of anemia Surgical History Anesthesia History of appendectomy (~2016) Family History Mother Diabetes mellitus Hypertension Stroke Father Hypertension Grandmother Heart disease Grandfather Heart disease Diabetes mellitus Grandmother Heart disease Social History marital status: unmarried,living together number of children: 1 (One as a baby) household members: significant other and children lives independently: Yes caregiver/support person: Yes housing: house pets and animals: No education level: college (bachelor's degree) 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 current occupational exposures/hazards: Yes special pedro needs: No travel history: recent (domestic only) seatbelt use: always helmet use: No water heater temp set < 120 deg: Yes working smoke detector in home: Yes fire extinguisher in home: Yes carbon monox detector in home: Yes firearms in home: No do you feel safe at home: Yes Smoking Status: Never smoker Tobacco: How many years used: 3 second hand exposure: Yes (s/o vapes) alcohol intake: former (occasionally when not ) substance use type: does not use during the past year weight has: remained stable well-balanced diet: rarely or never daily servings fruits/ve-1 caffeine: Yes (AM cup coffee) Type(s) of exercise: none Meds Home Medications and Allergies Home Medications Medication Instructions Recorded Confirmed Type prenat.vits,jason,[id number] 1 tab PO DAILY #90 tabs 05/04/23 11/10/23 Rx Allergies Allergy/AdvReac Type Severity Reaction Status Date / Time No Known Drug Allergies Allergy Verified 11/03/23 09:57 OB Exam Narrative Exam Narrative: Generally: Patient is sitting up in bed, no acute distress Lungs: Clear to auscultation bilaterally Cardiovascular: Regular rate and rhythm Fundal height: 38 cm Extremities: No edema Objective Labs 11/11/23 06:30 Labs: Laboratory Results - last 24 hr 11/11/23 06:30 Hgb 9.8 L Hct 29.5 L Assessment and Plan Assessment and Plan Assessment and Plan narrative: Assessment: 33-year-old 3 para 1101 at 38-,2/7 weeks gestation in active labor Status post spontaneous rupture membranes with clear amniotic fluid Group B strep negative Plan: Expected management to spontaneous vaginal delivery Time Spent with Patient Total time spent with greater than 50% in coordination of care (as documented) at patient's floor/unit and/or counseling patient:: less than 15 minutes
--- NOTE | 2023-11-11 09:51 | PM.OBPRVD ---
Labor & Delivery Delivery date: 11/11/23 Intrapartal Events: None Cervical ripening method: none Induction method: none Delivery monitor: external FHT and external uterine Route of delivery: L&D Laceration Description: Perineal - 1st Degree and Vaginal - 1st Degree Quantitative Blood Loss: 200 Anesthesia Type: None Complications: None Narrative: Patient complete and pushed for 5 minutes. At 9:47 a.m., a live female infant delivered spontaneously in the TROY presentation, over an intact perineum. A nuchal cord x1 was reduced on the perineum. The remainder of the body delivered without difficulty and was placed on mom's abdomen. The cord was double clamped and cut after it stopped pulsing. Cord bloods were obtained. Pitocin was given in the IV fluids. The placenta delivered intact with a three-vessel cord at 9:52 a.m.. A first-degree vaginal/perineal laceration was repaired in the usual fashion. Apgars 9 at 1 minute and 9 at 5 minutes. QBL: 200 cc. . Local analgesia for repair. Mom and infant stable to recovery. Baby 1: Infant gender: Female Presentation: vertex Position: Left Occiput Anterior Placenta delivery description: Spontaneous Cord Vessel Description: 3 Vessels, Nuchal Cord (x 1) and Reduced score (1 min): 9 score (5 min): 9 weight: 7 lb 9 oz Plan for aftercare: Routine care
== END 2023-11-11 11:34 | disposition home or self-care (01) | DRG 560 ==
PROVIDERS: Admitting Provider Obstetrics & Gynecology; Referring Provider Obstetrics & Gynecology; Visit Provider Obstetrics & Gynecology
DX: O70.0 First degree perineal laceration during delivery (principal); Z3A.38 38 weeks gestation of pregnancy; Z37.0 Single live birth
CPT/HCPCS: 36415; 59050; 59409; 85014; 85018; 85025; 86850; 86900; 86901; G0379; J2590

== ENCOUNTER 2023-12-23 13:36 | Emergency (ER) | payer OTHER, MEDICAID, SELFPAY ==
[2023-12-23 13:42] VITALS: BP 116/56; PULSE 62; RESP 18; TEMP 36.5; O2SAT 98; BMI 21.9
--- NOTE | 2023-12-23 13:49 | ED_ITS ---
HPI - Eye Problem <Ousmane Cantu PA-C - Last Filed: 12/23/23 14:48> General Chief complaint: Eye Problems Stated complaint: pink eye Time Seen by Provider: 12/23/23 13:47 Source: patient Mode of arrival: Ambulatory History of Present Illness HPI Narrative: This is a 33-year-old female presenting to the emergency department due to bilateral eye irritation for the last 5 days. She also states purulent drainage. Has been using Polytrim drops prescribed to her son without significant relief. Denies any fevers, nausea, vomiting, or any other concerning signs or symptoms. Related Data Previous Rx's Medication Instructions Recorded prenat.vits,jason,[id number] 1 tab PO DAILY #90 tabs 05/04/23 ofloxacin 0.3 % eye drops 1 drp EYE-BOTH QID 7 days #10 mL 12/23/23 Allergies Allergy/AdvReac Type Severity Reaction Status Date / Time No Known Drug Allergies Allergy Verified 11/30/23 08:45 Review of Systems <Ousmane Cantu PA-C - Last Filed: 12/23/23 14:48> Review of Systems Narrative: GENERAL: Denies chills, fatigue, malaise, fever, sweats. HEENT: Reports bilateral eye irritation and drainage Denies sinus pain, ear pain, sore throat, difficulty swallowing, dizziness. RESPIRATORY: Denies dyspnea, cough, wheezing, hemoptysis, sputum. CARDIOVASCULAR: Denies chest pain, palpitations, orthopnea, edema, GASTROINTESTINAL: Denies nausea, vomiting, abdominal pain, diarrhea, constipation, melena. : Denies dysuria, frequency, incontinence, hematuria, urinary retention. MUSCULOSKELETAL: denies weakness, joint pain, or bony pain SKIN: Denies rash, skin lesions, or other NEUROLOGIC: Denies weakness, headache, numbness, change in speech, confusion, seizures, incoordination. PSYCHIATRIC: No concerning psychosocial issues. 12 point review of systems is negative except for those stated above Patient History <Ousmane Cantu PA-C - Last Filed: 12/23/23 14:48> Medical History Fibroids Positive PPD (~2013) Vaginal delivery History of migraine History of depression History of anemia Surgical History Anesthesia History of appendectomy (~2017) Family History Mother Diabetes mellitus Hypertension Stroke Father Hypertension Grandmother Heart disease Grandfather Heart disease Diabetes mellitus Grandmother Heart disease Social History marital status: unmarried,living together number of children: 2 (One as a baby) household members: significant other and children lives independently: Yes caregiver/support person: Yes housing: house pets and animals: No education level: college (bachelor's degree) 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 current occupational exposures/hazards: Yes special pedro needs: No travel history: recent (domestic only) seatbelt use: always helmet use: No water heater temp set < 120 deg: Yes working smoke detector in home: Yes fire extinguisher in home: Yes carbon monox detector in home: Yes firearms in home: No do you feel safe at home: Yes Smoking Status: Never smoker Tobacco: How many years used: 3 second hand exposure: Yes (s/o vapes) alcohol intake: former (occasionally when not ) substance use type: does not use during the past year weight has: remained stable well-balanced diet: rarely or never daily servings fruits/ve-1 caffeine: Yes (AM cup coffee) Type(s) of exercise: none Smoking Status: Never smoker Substance Use Type: does not use Exam <Ousmane Cantu PA-C - Last Filed: 12/23/23 14:48> Narrative Exam Narrative: GENERAL: Well-developed patient, in mild distress. HEAD: Atraumatic. Normocephalic. EYES: Pupils equal round and reactive. Extraocular motions intact. Erythema not ed to the bilateral conjunctiva. No periorbital edema. ENT: Nose without bleeding, purulent drainage. Throat without erythema, tonsillar hypertrophy or exudate. Airway patent. NECK: Trachea midline. Non tender EXTREMITIES: No edema or joint tenderness. NEURO: AOx3. SKIN: No rash or erythema of visible areas Initial Vital Signs Initial Vital Signs: Vital Signs Temperature 97.7 F 12/23/23 13:42 Pulse Rate 62 12/23/23 13:42 Respiratory Rate 18 12/23/23 13:42 Blood Pressure 116/56 L 12/23/23 13:42 Pulse Oximetry 98 12/23/23 13:42 Oxygen Delivery Method Room Air 12/23/23 13:42 <Nitin Keita DO - Last Filed: 12/23/23 15:06> Initial Vital Signs Initial Vital Signs: Vital Signs Temperature 97.7 F 12/23/23 13:42 Pulse Rate 62 12/23/23 13:42 Respiratory Rate 18 12/23/23 13:42 Blood Pressure 116/56 L 12/23/23 13:42 Pulse Oximetry 98 12/23/23 13:42 Oxygen Delivery Method Room Air 12/23/23 13:42 Course <Ousmane Cantu PA-C - Last Filed: 12/23/23 14:48> Vital Signs Vital signs: Vital Signs - 8 hr 12/23/23 13:42 12/23/23 14:47 Temperature 97.7 F Pulse Rate 62 70 Respiratory Rate 18 18 Blood Pressure 116/56 L 100/74 Pulse Oximetry 98 98 Oxygen Delivery Method Room Air Room Air <Nitin Keita DO - Last Filed: 12/23/23 15:06> Vital Signs Vital signs: Vital Signs - 8 hr 12/23/23 13:42 12/23/23 14:47 Temperature 97.7 F Pulse Rate 62 70 Respiratory Rate 18 18 Blood Pressure 116/56 L 100/74 Pulse Oximetry 98 98 Oxygen Delivery Method Room Air Room Air MDM - Eye Problem <Ousmane Cantu PA-C - Last Filed: 12/23/23 14:48> MDM Narrative Medical decision making narrative: ED course: This is a 33-year-old female presents emergency department due to bilateral eye irritation. No evidence of periorbital or orbital cellulitis. No pain with extraocular movements. Son has been diagnosed with a pinkeye. Patient reports purulent drainage. We will treat for bacterial conjunctivitis. Patient was also attempted a course of Polytrim drops that were her sons. These seem to have been ineffective. We will attempt ofloxacin drops CC: Eye irritation Complicating co-morbidities: None Data collected from: Previous notes Medical records reviewed: Patient was not been seen by this emergency department in the past. He was last seen by her primary care provider for a wellness exam. No concerns. No pertinent medical history. Differential considered, but not limited to: Periorbital cellulitis, orbital cellulitis, bacterial conjunctivitis, viral conjunctivitis Exam documented above, pertinent findings include: Erythematous of the bilateral conjunctiva Lab Test results independently reviewed as above. Pertinent findings: None obtained Imaging studies independently reviewed: None obtained Scores Used: None MIPS Elements: None Consultations: None Treatments: None Re-evaluations: None Discussion: Discussed plan with the patient was comfortable with the plan Diagnosis: Bacterial conjunctivitis Disposition: see below, along with detailed discharge instructions that have been reviewed with patient as well as indications for ED re-evaluation and wilmer tional outpatient follow up Discharge Plan Departure Patient Disposition: Home Clinical Impression: Bacterial conjunctivitis Activity Restrictions/Additional Instructions: Thank you for coming to the [facility] Emergency Department today. Please take the topical drops as prescribed. Please return to the emergency department if you develop any fevers, significant eye pain, or any other concerning signs or symptoms. I hope you feel better soon. Please follow up with your primary care provider within a week if your symptoms continue. If you do not have a primary care provider please contact the [facility] Resource line at [phone]. They will ask some questions about your medical history and help you get set up with a provider in the community. Prescriptions: New ofloxacin 0.3 % drops 1 drp EYE-BOTH QID 7 Days Qty: 10 0RF No Action prenat.vits,jason,[id number] Tablet 1 tab PO DAILY Qty: 90 3RF Rx Instructions: Please fill whichever brand is covered by pt's insurance. Referrals: Joslyn Condon MD [Primary Care Provider] - Stand Alone Forms: Patient Portal/API ED Sign-out <Nitin Keita, DO - Last Filed: 12/23/23 15:06> Cosign ED Attending Cossonjaature Attestation: Dr Keita Co-Sign Statement: I was available for consultation during this patient's emergency department visit. This chart is signed by myself for administrative purposes only. I did not have direct contact with this patient during this visit. They were seen independently by the APC.
[2023-12-23 14:47] VITALS: BP 100/74; PULSE 70; RESP 18; O2SAT 98
== END 2023-12-23 14:59 | disposition home or self-care (01) ==
PROVIDERS: Emergency Provider Physician Assistant Medical; PCP Family Medicine
DX: H10.89 Other conjunctivitis (principal)
CPT/HCPCS: 99281; 99283

== ENCOUNTER → 2024-02-02 08:39 | Outpatient (CLI) | payer OTHER, MEDICAID, SELFPAY ==
[2024-02-02 09:17] LABS: Appearance Urine UA CLEAR; Bilirubin Urine UA NEGATIVE (NEGATIVE); Color Urine UA YELLOW; Glucose Urine UA NEGATIVE (Negative); Ketones Urine UA NEGATIVE (NEGATIVE); Leukocyte Esterase Urine UA NEGATIVE (NEGATIVE); Nitrite Urine UA NEGATIVE (Negative); Occult Blood Urine UA NEGATIVE (Negative); Protein Urine UA NEGATIVE (Negative); Urobilinogen Urine UA 0.2 E.U./dL (0.2)
[2024-02-02 09:29] LABS: Add Manual Diff / Slide Review NO; Basophils Absolute Auto 100 /uL (0-100); Basophils Percent Auto 1.2 % (0-2); Eosinophils Absolute Auto 200 /uL (0-450); Eosinophils Percent Auto 3.4 % (2-4); Hematocrit 38.4 % (36-46); Hemoglobin 12.9 g/dL (12.0-16.0); Lymphocytes Absolute Auto 2400 /uL (1100-4500); Mean Corpuscular HGB Conc 33.7 % (30-36); Mean Corpuscular Hemoglobin 29.9 PG (26-34); Mean Corpuscular Volume 88.8 fL (80-100); Monocytes Absolute Auto 400 /uL (0-900); Neutrophils Absolute Auto 3200 /uL (1500-7000); Neutrophils Percent Auto 50.4 % (50-75); Platelet Count 337 X10^3/uL (150-400); Red Blood Cell Count 4.33 X10^6/uL (4.0-5.2); Red Cell Distribution Width 12.7 % (11.6-14.8); White Blood Cell Count 6.3 X10^3/uL (4.5-11.0)
[2024-02-02 09:33] LABS: pH Urine UA 5.5 (4.5-8.0)
[2024-02-02 09:47] LABS: Alanine Aminotransferase 16 IU/L (<35); Albumin 4.6 g/dL (3.5-5.0); Albumin Globulin Ratio 1.1 (1.0-2.8); Alkaline Phosphatase 106 U/L (38-126); Aspartate Aminotransferase 32 IU/L (14-36); Bilirubin Total 0.6 mg/dL (0.2-1.3); Blood Urea Nitrogen 11 mg/dL (7-17); Calcium 9.8 mg/dL (8.4-10.2); Carbon Dioxide 31 mmol/L (22-32); Chloride 105 mmol/L (98-107); Cholesterol 170 mg/dL (140-199); Estimated Glomerular Filt Rate > 60 mL/min (>60); Gamma Glutamyl Transpeptidase 18 U/L (12-43); Globulin 4.1 g/dL (1.7-4.1); Glucose 88 mg/dL (70-100); HDL Cholesterol 72 mg/dL (40-60); HEMOLYSIS < 15 (0-50); LDL Cholesterol Calculated 82 mg/dL (<100); Potassium 3.8 mmol/L (3.4-5.1); Sodium 142 mmol/L (137-145); Total Protein 8.7 g/dL (6.3-8.2); Triglycerides 80 mg/dL (35-150)
[2024-02-02 09:52] LABS: Hemoglobin A1C% w Est Avg Glu 5.3 % (4.0-6.0)
[2024-02-02 10:27] LABS: HIV 1 & 2 Ab/Ag 4th Gen Combo NEGATIVE (NEGATIVE)
[2024-02-02 11:26] LABS: Bacteria Urine None Seen; Culture Indicated Urine Cult Not Indicated; RBC Urine None Seen (0-5/HPF); Squamous Epithelial Cell Urine 5-10 /HPF (0-5/HPF); Urine Volume 10mL (spun); WBC Urine None Seen (0-5/HPF)
[2024-02-04 09:04] LABS: Cholesterol HDL Ratio 2.3 ratio (0.0-4.4); Cholesterol,Total 160 mg/dL (100-199); HDL Cholesterol 70 mg/dL (>39); LDL Cholesterol Cal 77 mg/dL (0-99); Triglycerides 64 mg/dL (0-149); VLDL Cholesterol Cal 13 mg/dL (5-40)
[2024-02-06 14:47] LABS: t-Transglutaminase IgA <2 U/mL (0-3)
== END ==
LOC: LAB 08:44
PROVIDERS: PCP Family Medicine; Referring Provider Family Medicine; Visit Provider Family Medicine
DX: Z00.00 Encounter for general adult medical examination without abnormal findings (principal); Z13.9 Encounter for screening, unspecified
CPT/HCPCS: 36415; 80053; 80061; 81001; 82977; 83036; 83516; 85025; 87389

== ENCOUNTER → 2024-10-01 11:26 | Outpatient (CLI) | payer OTHER, MEDICAID, SELFPAY ==
--- NOTE | 2024-10-01 11:29 | DI.RAD.S_ITS ---
PROCEDURE: XR HIP W PEL IF DONE LT 2V INDICATIONS: Left hip pain TECHNIQUE: AP pelvis with lateral view(s) of the left hip(s). COMPARISON: None. FINDINGS: Bones: No fractures or dislocations. Pelvic ring appears intact. No suspicious bony lesions. Soft tissues: The visualized bowel gas pattern is normal. No suspicious soft tissue calcifications. IMPRESSION: No acute osseous abnormality. If pain persists with conservative management, consider repeat x-ray in 10-14 days or cross-sectional imaging. Dictated by: Warner Hayes M.D. on 10/01/2024 at 15:14 Approved by: Warner Hayes M.D. on 10/01/2024 at 15:14
== END ==
PROVIDERS: PCP Family Medicine; Referring Provider Family Medicine; Visit Provider Family Medicine
DX: M25.552 Pain in left hip (principal)
CPT/HCPCS: 73502

== ENCOUNTER → 2025-03-18 10:40 | Outpatient (CLI) | payer OTHER, SELFPAY ==
--- NOTE | 2025-03-18 10:41 | DI.US.S_ITS ---
PROCEDURE: US PELVIC COMPLETE INDICATIONS: HISTORY OF FIBROIDS PRIOR TO LAST PREGNANCIES TECHNIQUE: Real-time scanning was performed of the pelvic organs, with image documentation. Additional endovaginal scanning was necessary due to incomplete visualization of the adnexal and endometrial structures by transabdominal scanning. COMPARISON: None. FINDINGS: Uterus: Uterus is retroverted and normal in size at 6.4 x 4.4 x 4.0 cm. The myometrium is homogeneous. The endometrium measures 19.3 mm combined thickness. Ovaries: The right ovary measures 2.6 x 1.3 x 1.8 cm, with a calculated ovarian volume of 3.1 cc. The left ovary measures 1.9 x 1.3 x 1.8 cm, with a calculated ovarian volume of 2.4 cc. The ovaries have a normal sonographic appearance. Less than 12 follicles can be seen in each ovary. No adnexal masses are seen. Other: No pathologic free abdominal or pelvic fluid. IMPRESSION: Thickened endometrium. Advise repeat exam in 4-6 weeks after next menstrual cycle during the proliferative phase Approved by: Raúl Winters M.D. on 03/18/2025 at 16:14
== END ==
LOC: US 10:41
PROVIDERS: Family Provider Family Medicine; PCP Family Medicine; Referring Provider Family Medicine; Visit Provider Family Medicine
DX: D21.9 Benign neoplasm of connective and other soft tissue, unspecified (principal); R93.89 Abnormal findings on diagnostic imaging of other specified body structures
CPT/HCPCS: 76830; 76856

== ENCOUNTER → 2025-04-22 07:27 | Outpatient (CLI) | payer OTHER, SELFPAY ==
--- NOTE | 2025-04-22 | DI.US.S_ITS ---
PROCEDURE: US PELVIC COMPLETE INDICATIONS: ENDOMETRIUM THICKENING FOLLOW UP TECHNIQUE: Real-time scanning was performed of the pelvic organs, with image documentation. Additional endovaginal scanning was necessary due to incomplete visualization of the adnexal and endometrial structures by transabdominal scanning. COMPARISON: [facility], , US PELVIC COMPLETE, 03/18/2025, 11:09. FINDINGS: Uterus: Suspect arcuate configuration, normal variant. Endometrium measures 8 mm, within normal limits. Anteverted positioning. Overall uterus measures 6.3 x 4.9 x 3.4 cm. Ovaries: Nonenlarged bilaterally measuring 4 cc on the right and 6 cc on the left. Other: No pathologic free abdominal or pelvic fluid. IMPRESSION: Endometrium within normal limits, measuring 8 mm. No significant adnexal abnormality. Dictated by: Brandon Hicks M.D. on 04/22/2025 at 12:56 Approved by: Johnny Russell 04/22/2025 at 12:57
== END ==
PROVIDERS: Family Provider Family Medicine; PCP Family Medicine; Referring Provider Family Medicine; Visit Provider Family Medicine
DX: R93.89 Abnormal findings on diagnostic imaging of other specified body structures (principal)
CPT/HCPCS: 76830; 76856